=== PATIENT | female | born 1995 | race African-American/Black ===

== ENCOUNTER 2021-02-07 12:07 | Emergency (ER) | payer OTHER ==
[~2021-02-07] VITALS: Ht 160 cm; Wt 65.8 kg
== END 2021-02-07 15:59 | disposition home or self-care (01) ==
LOC: ED 12:07
DX: N83.202 Unspecified ovarian cyst, left side (principal)
CPT/HCPCS: 76830; 76856; 80048; 81001; 84703; 85025; 87210; 87491; 87591; 99284-25

== ENCOUNTER 2021-03-19 19:04 | Emergency (ER) | payer MEDICAID ==
[~2021-03-19] VITALS: Ht 160 cm; Wt 65.8 kg
[2021-03-19] MEDS ORDERED: OMEPRAZOLE20 MG PO (23:13)
--- NOTE | 2021-03-21 12:36 | EKG ---
[facility] [address] [facility] [place], [place] [address] Signed Normal sinus rhythm with sinus arrhythmia Normal ECG No previous ECGs available Confirmed by LIBRADO LOUIS DO ([id number]) on 03/21/2021 12:35:52 PM Electronically Signed By: LIBRADO LOUIS DO 03/21/21 1236 PATIENT NAME: ROSALES HAYDEN Electrocardiogram DATE OF : [birth year] PHYSICIAN: LIBRADO LOUIS DO REPORT #: [id number] REPORT IS CONFIDENTIAL AND NOT TO BE RELEASED WITHOUT AUTHORIZATION
== END 2021-03-19 23:28 | disposition home or self-care (01) ==
LOC: ED 19:04
DX: R10.13 Epigastric pain (principal); Z20.822 Contact with and (suspected) exposure to COVID-19
CPT/HCPCS: 74177; 80053; 81001; 83690; 84703; 85025; 93005; 93010; 96375; 96376; 99284-25; C9113; C9803; J1170; J1885; J2405; J7030; Q9967; U0003

== ENCOUNTER 2021-06-03 15:58 | Emergency (ER) | payer MEDICAID ==
[~2021-06-03] VITALS: Ht 160 cm; Wt 59.4 kg
[~2021-06-03 15:58] MED LIST: OMEPRAZOLE20 MG PO
--- OUTSIDE RECORDS SUMMARY | 2021-06-03 16:06 | XMS ---
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 - 2 Visits in 30 Days CARE PROVIDERS There are no care providers on record at this time. Grzegorz has no Care Guidelines for this patient. Trina VISIT COUNT (12 MO.) 1 Jose Roberto Morgan 3 [facility] TOTAL 4 NOTE: Visits indicate total known visits. ED/C VISIT TRACKING (12 MO.) [facility] COMPLAINT: - CHEST PAIN 06/01/2021 23:39 Jose Roberto Morgan [facility] TYPE: Emergency DIAGNOSES: - Hypokalemia - Arm pain - Strain of muscle, fascia and tendon at neck level, initial encounter - Tension-type headache, unspecified, intractable - Lesion of ulnar nerve, right upper limb - Strain of other muscles, fascia and tendons at shoulder and upper arm level, right arm, initial encounter - Paresthesia of skin 03/19/2021 19:[address] [facility] [place] TYPE: Emergency COMPLAINT: - ABDOM PAIN, AND CHEST PREASURE DIAGNOSES: - Generalized abdominal pain - Epigastric pain 02/07/2021 12:10 [facility] [place] TYPE: Emergency COMPLAINT: - LEFT PAIN HIP/PELVIC AREA DIAGNOSES: - Unspecified ovarian cyst, left side - Left lower quadrant pain INPATIENT VISIT TRACKING (12 MO.) No inpatient visits to display in this time frame [email or web address]
--- NOTE | 2021-06-04 18:44 | EKG ---
[facility] [address] [facility] [place], [place] [address] Signed Normal sinus rhythm with sinus arrhythmia Normal ECG When compared with ECG of 19-MAR-2021 20:12, No significant change was found Confirmed by LIBRADO LOUIS DO ([id number]) on 06/04/2021 6:44:27 PM Electronically Signed By: LIBRADO LOUIS DO 06/04/21 1844 PATIENT NAME: ROSALES HAYDEN Electrocardiogram DATE OF : [birth year] PHYSICIAN: LIBRADO LOUIS DO REPORT #: [id number] REPORT IS CONFIDENTIAL AND NOT TO BE RELEASED WITHOUT AUTHORIZATION
== END 2021-06-03 17:20 | disposition left against medical advice (07) ==
LOC: ED 15:58
DX: Z53.21 Procedure and treatment not carried out due to patient leaving prior to being seen by health care provider (principal)
CPT/HCPCS: 93005; 93010

== ENCOUNTER 2021-08-19 17:42 | Emergency (ER) | payer MEDICAID ==
[~2021-08-19] VITALS: Ht 160 cm; Wt 59.0 kg
== END 2021-08-19 21:02 | disposition home or self-care (01) ==
LOC: ED 17:42
DX: R11.10 Vomiting, unspecified (principal)
CPT/HCPCS: 74177; 80053; 81001; 83690; 84703; 85025; 99284-25; A9270; J2405; J7030; Q9967

== ENCOUNTER 2021-11-11 15:40 | Emergency (ER) | payer MEDICAID ==
[~2021-11-11] VITALS: Ht 160 cm; Wt 59.0 kg
[2021-11-11] MEDS ORDERED: MAPAP500 MG PO (22:32)
[2021-11-11] MEDS ORDERED: IBU600 MG PO (22:32)
--- NOTE | 2021-11-14 11:25 | EKG ---
[facility] [address] [facility] [place], [place] [address] Signed Sinus rhythm with marked sinus arrhythmia Otherwise normal ECG When compared with ECG of 03-JUN-2021 16:04, No significant change was found Confirmed by RAMIRO PACK MD ([id number]) on 11/14/2021 11:25:13 AM Electronically Signed By: RAMIRO PACK MD 11/14/21 1125 PATIENT NAME: ROSALES HAYDEN Electrocardiogram DATE OF : [birth year] PHYSICIAN: RAMIRO PACK MD REPORT #: [id number] REPORT IS CONFIDENTIAL AND NOT TO BE RELEASED WITHOUT AUTHORIZATION
== END 2021-11-11 22:40 | disposition home or self-care (01) ==
LOC: ED 15:40
DX: J06.9 Acute upper respiratory infection, unspecified (principal); N93.8 Other specified abnormal uterine and vaginal bleeding; R51.9 Headache, unspecified
CPT/HCPCS: 70450; 71045; 80048; 84703; 85025; 93005; 93010; 96374; 96375; 99285-25; J0780; J1200; J7121

== ENCOUNTER 2021-12-04 19:36 | Emergency (ER) | payer MEDICAID ==
[~2021-12-04] VITALS: Ht 160 cm; Wt 59.9 kg
[~2021-12-04 19:36] MED LIST changes: +IBU600 MG PO; +MAPAP500 MG PO
--- OUTSIDE RECORDS SUMMARY | 2021-12-04 19:42 | XMS ---
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 EMatthew. VISIT COUNT (12 MO.) 1 Jose Roberto Morgan 6 [facility] TOTAL 7 NOTE: Visits indicate total known visits. ED/UCC VISIT TRACKING (12 MO.) 12/04/2021 19:36 [facility] TYPE: Emergency COMPLAINT: - POSS OVERDOSE 11/11/2021 15:41 [facility] TYPE: Emergency COMPLAINT: - HEADACHE, SOB, RUNNY NOSE DIAGNOSES: - Headache, unspecified - Other specified abnormal uterine and vaginal bleeding - Acute upper respiratory infection, unspecified 08/19/2021 17:43 [facility] TYPE: Emergency COMPLAINT: - VOMITING DIAGNOSES: - Vomiting, unspecified 06/03/2021 15:59 [facility] TYPE: Emergency COMPLAINT: - CHEST PAIN DIAGNOSES: - Procedure and treatment not carried out due to patient leaving prior to being seen by health care provider 06/01/2021 23:39 Jose [facility] [place] TYPE: Emergency DIAGNOSES: - Hypokalemia - Arm pain - Strain of muscle, fascia and tendon at neck level, initial encounter - Tension-type headache, unspecified, intractable - Lesion of ulnar nerve, right upper limb - Strain of other muscles, fascia and tendons at shoulder and upper arm level, right arm, initial encounter - Paresthesia of skin 03/19/2021 19:05 [facility] TYPE: Emergency COMPLAINT: - ABDOM PAIN, AND CHEST PREASURE DIAGNOSES: - Generalized abdominal pain - Epigastric pain 02/07/2021 12:10 [facility] TYPE: Emergency COMPLAINT: - LEFT PAIN HIP/PELVIC AREA DIAGNOSES: - Unspecified ovarian cyst, left side - Left lower quadrant pain INPATIENT VISIT TRACKING (12 MO.) No inpatient visits to display in this time frame [email or web address]
[2021-12-04] MEDS ORDERED: AMITRIPTYLINE H10 MG PO (19:58)
--- NOTE | 2021-12-05 18:54 | EKG ---
[facility] [address] [facility] [place], [place] [address] Signed Normal sinus rhythm with sinus arrhythmia Normal ECG When compared with ECG of 04-DEC-2021 19:38, (Unconfirmed) No significant change was found Confirmed by LIBRADO LOUIS DO ([id number]) on 12/05/2021 6:54:13 PM Electronically Signed By: LIBRADO LOUIS DO 12/05/21 1854 PATIENT NAME: ROSALES HAYDEN Electrocardiogram DATE OF : [birth year] PHYSICIAN: LIBRADO LOUIS DO REPORT #: [id number] REPORT IS CONFIDENTIAL AND NOT TO BE RELEASED WITHOUT AUTHORIZATION
--- NOTE | 2021-12-05 18:54 | EKG ---
[facility] [address] [facility] [place] [address] Signed Normal sinus rhythm Normal ECG When compared with ECG of 11-NOV-2021 21:09, Vent. rate has increased BY 37 BPM Confirmed by LIBRADO LOUIS DO ([id number]) on 12/05/2021 6:54:08 PM Electronically Signed By: LIBRADO LOUIS DO 12/05/21 1854 PATIENT NAME: ROSALES HAYDEN Electrocardiogram DATE OF : [birth year] PHYSICIAN: LIBRADO LOUIS DO REPORT #: [id number] REPORT IS CONFIDENTIAL AND NOT TO BE RELEASED WITHOUT AUTHORIZATION
== END 2021-12-05 00:19 | disposition home or self-care (01) ==
LOC: ED 19:36
DX: T43.012A Poisoning by tricyclic antidepressants, intentional self-harm, initial encounter (principal); G43.909 Migraine, unspecified, not intractable, without status migrainosus; Z79.899 Other long term (current) drug therapy
CPT/HCPCS: 36415; 80053; 81001; 84443; 84703; 85025; 93005; 93010; 99285-25; G0480

== ENCOUNTER 2022-01-26 16:48 | Emergency (ER) | payer MEDICAID ==
[~2022-01-26] VITALS: Ht 160 cm; Wt 61.2 kg
[~2022-01-26 16:48] MED LIST changes: +AMITRIPTYLINE H10 MG PO
[2022-01-26] MEDS ORDERED: ULTRAM50 MG PO (19:53)
== END 2022-01-26 20:11 | disposition home or self-care (01) ==
LOC: ED 16:48
DX: K08.89 Other specified disorders of teeth and supporting structures (principal); G43.909 Migraine, unspecified, not intractable, without status migrainosus
CPT/HCPCS: 87081; 87880; 99283

== ENCOUNTER 2022-05-10 14:27 | Emergency (ER) | payer MEDICAID ==
[~2022-05-10] VITALS: Ht 160 cm; Wt 61.5 kg
[~2022-05-10 14:27] MED LIST changes: +ULTRAM50 MG PO
--- NOTE | 2022-05-10 17:24 | EKG ---
[facility] [address] [facility] [place], [place] [address] Signed Normal sinus rhythm Normal ECG When compared with ECG of 04-DEC-2021 23:56, No significant change was found Confirmed by OBED LAWRENCE MD ([id number]) on 05/10/2022 5:24:41 PM Electronically Signed By: OBED LAWRENCE MD 05/10/22 1724 PATIENT NAME: ROSALES HAYDEN Electrocardiogram DATE OF : [birth year] PHYSICIAN: OBED LAWRENCE MD REPORT #: [id number] REPORT IS CONFIDENTIAL AND NOT TO BE RELEASED WITHOUT AUTHORIZATION
== END 2022-05-10 17:20 | disposition home or self-care (01) ==
LOC: ED 14:27
DX: U07.1 COVID-19 (principal)
CPT/HCPCS: 36415; 71046; 80053; 83735; 84484; 85025; 87502; 93005; 93010; C9803; U0003

== ENCOUNTER 2022-07-21 13:59 | Emergency (ER) | payer MEDICAID ==
[~2022-07-21] VITALS: Ht 160 cm; Wt 61.5 kg
== END 2022-07-21 14:32 | disposition home or self-care (01) ==
LOC: ED 13:59
DX: S60.222A Contusion of left hand, initial encounter (principal); W22.8XXA Striking against or struck by other objects, initial encounter
CPT/HCPCS: 73130; 99283-25

== ENCOUNTER 2022-09-04 00:36 | Emergency (ER) | payer MEDICAID ==
[~2022-09-04] VITALS: Ht 160 cm; Wt 65.8 kg
--- OUTSIDE RECORDS SUMMARY | 2022-09-04 00:39 | XMS ---
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 CRITERIA MET - [facility] - 2 Visits in 30 Days CARE PROVIDERS TAMMY PONCE [facility] Current PHONE: [phone] HERVE WHITTAKER Physician Colorectal Surgeon Current PHONE: [phone] Grzegorz has no Care Guidelines for this patient. EÁlvaro VISIT COUNT (12 MO.) [address] [place] [address] TOTAL 7 NOTE: Visits indicate total known visits. ED/UCC VISIT TRACKING (12 MO.) 09/04/2022 00:[address] [facility] [place] TYPE: Emergency COMPLAINT: - VAGINAL BLEEDING 09/03/2022 16:[address] [facility] [place] TYPE: Emergency COMPLAINT: - CRAMPS, VAGINAL BLEEDING, 6WKS 07/21/2022 14:00 [facility] [place] TYPE: Emergency COMPLAINT: - L HAND PAIN DIAGNOSES: - Contusion of left hand, initial encounter - Pain in left hand - Striking against or struck by other objects, initial encounter 05/10/2022 14:27 [facility] [place] TYPE: Emergency COMPLAINT: - CHEST PAIN DIAGNOSES: - COVID-19 - Other chest pain 01/26/2022 16:48 [facility] [place] TYPE: Emergency COMPLAINT: - SORE THROAT, DENTAL PAIN DIAGNOSES: - Migraine, unspecified, not intractable, without status migrainosus - Acute pharyngitis, unspecified - Other specified disorders of teeth and supporting structures 12/04/2021 19:[address] [facility] [address] [facility] [place] TYPE: Emergency COMPLAINT: - POSS OVERDOSE DIAGNOSES: - Migraine, unspecified, not intractable, without status migrainosus - Poisoning by tricyclic antidepressants, intentional self-harm, initial encounter - Suicidal ideations - Other termination clerk (current) drug therapy 11/11/2021 15:[address] [facility] [place] TYPE: Emergency COMPLAINT: - HEADACHE, SOB, RUNNY NOSE DIAGNOSES: - Headache, unspecified - Other specified abnormal uterine and vaginal bleeding - Acute upper respiratory infection, unspecified INPATIENT VISIT TRACKING (12 MO.) No inpatient visits to display in this time frame [email or web address]
[2022-09-04] MEDS ORDERED: ONDANSETRON ODT8 MG PO (03:06)
[2022-09-04] MEDS ORDERED: HYDROCODON-ACE1 EA10 PO (03:06)
== END 2022-09-04 03:54 | disposition home or self-care (01) ==
LOC: ED 00:36
DX: O03.9 Complete or unspecified spontaneous abortion without complication (principal); G43.909 Migraine, unspecified, not intractable, without status migrainosus
CPT/HCPCS: 36415; 85025; 86900; 86901; 96361; 96374; 96375; 99284-25; A9270; J1170; J1885; J2270; J7121

== ENCOUNTER 2023-08-14 12:00 | Emergency (ER) | payer MEDICAID ==
[~2023-08-14] VITALS: Ht 160 cm; Wt 71.7 kg
[~2023-08-14 12:00] MED LIST changes: +HYDROCODON-ACE1 EA10 PO; +ONDANSETRON ODT8 MG PO
[2023-08-14] MEDS ORDERED: TYLENOL EXTRA500 MG PO (12:21)
[2023-08-14] MEDS ORDERED: ADVIL200 MG PO (12:22)
[2023-08-14 12:44] LABS: BILIRUBIN, URINE NEGATIVE (negative); BLOOD/HGB, URINE NEGATIVE (Negative); KETONE, URINE NEGATIVE (Negative); LEUK ESTERASE, URINE NEGATIVE (negative); NITRITE, URINE NEGATIVE (negative); PH, URINE 5.5 (5-7)
[2023-08-14 13:15] VITALS: BP 131/89
== END 2023-08-14 13:15 | disposition home or self-care (01) ==
LOC: ED 12:00
PROVIDERS: Emergency Medicine
DX: M54.9 Dorsalgia, unspecified (principal)
CPT/HCPCS: 81003; 84703; 99283